=== PATIENT | male | born 2000 | race African-American/Black ===

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

== ENCOUNTER 2019-02-26 09:15 | Emergency (ER) | payer MEDICAID, SELFPAY ==
[2019-02-26 09:16] VITALS: BP 110/63; PULSE 67; RESP 15; TEMP 36.4; O2SAT 100; BMI 24.3
--- NOTE | 2019-02-26 09:24 | ED.VISSUMM ---
- ER Visit Summary Date of Service: 02/26/19 Chief Complaint: Pinkeye History of Present Illness: The patient is a 18 M with pinkeye. Symptoms started this morning. This involves his left eye. Associated with watering and purulence. Denies pain, skin changes, or vision changes. Denies fever. He recently had infectious mononucleosis, but denies any other recent infections. Denies trauma or exposure to anything. He does not wear contact lenses. Physical Examination: Afebrile and vital signs unremarkable. Eye exam shows normal external structures. He does have some matting and watering. Conjunctivae diffusely injected. Pupils round and reactive, symmetric and consensual. Extraocular motions normal. No evidence of foreign bodies. Test Results: None indicated Emergency Department Course and Treatment: Patient has conjunctivitis. Precautions were discussed. He was started on antibiotic ointment. Follow-up with ophthalmology for recheck. Treatment Plan: As above Disposition: Discharge Impression: 1. Left eye conjunctivitis This note was generated with [employer] dictation software. It may contain incorrect words, spelling, and punctuation that were not noted in review of the chart prior to signing ED Disposition - Plan for ED Patient: Referrals: Care Physician,No Primary [Primary Care Provider] -
--- NOTE | 2019-02-26 09:27 | ED.DEP ---
ED Disposition - Plan for ED Patient: Instructions: CONJUNCTIVITIS, Viral Prescriptions: Erythromycin Ophthalmic 1 applic LEFT EYE 4X/DAY 5 Days #1 opth.tube Prescription Printed Referrals: Laurel Burton MD [STAFF PHYSICIAN] -
[2019-02-26] MEDS: Erythromycin Base 1 OPTH.TUBE 1 APPLIC LEFT EYE (10:05)
== END 2019-02-26 10:06 | disposition home or self-care (01) ==
LOC: ED 09:31
PROVIDERS: Emergency Provider Emergency Medicine
DX: H10.9 Unspecified conjunctivitis (principal)
CPT/HCPCS: 99283

== ENCOUNTER 2019-02-27 04:33 | Emergency (ER) | payer MEDICAID, SELFPAY ==
[2019-02-26 09:16] VITALS: BMI 24.3
[2019-02-27 04:34] VITALS: BP 132/73; PULSE 55; RESP 18; TEMP 36.7; O2SAT 100; BMI 24.6
--- NOTE | 2019-02-27 04:38 | ED.VIS.GEN ---
History of Present Illness Chief Complaint: Sore Throat Informant: Patient Narrative: Stated that he was here yesterday and being treated for bilateral conjunctivitis. He has 1 day history of cough runny nose and sore throat. Comes in for further evaluation. He has been using [id number]. Current severity is mild. Positive sick contacts. Negative strep test approximately 2 months ago Past Medical History - Allergies and Home Meds Allergies/Adverse Reactions: Allergies carrot Allergy (Verified 02/27/19 04:34) Itching celery Allergy (Verified 02/27/19 04:34) Itching chaney Allergy (Verified 02/27/19 04:34) Itching Primary Care Physician: NOT,DEFINED [NON-STAFF] - Prior records reviewed: Yes Past Medical History: None Surgical History: no surgical history Lives: With Family Smoking Status: Never smoker Alcohol: None Drugs: None Review of Systems General: Denies: Chills, Fever, Sweats Eyes: Denies: Visual changes - bilaterally, Diplopia ENT: Reports: Rhinorrhea, Sore throat Cardiovascular: Denies: Chest pain, Palpitations Respiratory: Reports: Cough. Denies: Dyspnea, Dyspnea on exertion Gastrointestinal: Denies: Abdominal pain, Nausea, Vomiting, Diarrhea, Melena, Hematochezia Genitourinary: Denies: Dysuria, Hematuria, Frequency Musculoskeletal: Denies: Back pain, Extremity Pain Skin: Denies: Rash, Wounds Neurological: Denies: Headache, Weakness, Numbness Physical Exam Vital Signs/Narrative: Vital Signs Temp Pulse Resp BP Pulse Ox 02/27/19 04:34 98.1 F 55 L 18 132/73 H 100 General: Well nourished, Well developed, No Acute Distress Head: Normocephalic, Atraumatic Eyes: Perrl, EOMI, - - Bilateral conjunctivitis ENT: Moist mucous membranes, No rhinorrhea, - - 2+ mild tonsillitis without exudate Neck: Supple, Nontender Cardiovascular: Regular rate, Regular rhythm, No murmurs Respiratory: No distress, CTA bilaterally, Chest nontender Abdomen: Soft, Nontender, Nondistended, Normal bowel sounds Back: Nontender, Normal Inspection Extremities: Nontender, No edema Skin: Normal color, No rash Neurological: Alert, Oriented x3, Cranial nerves II-XII grossly intact, Normal Strength, Normal Sensation Psychological: Normal affect, Normal Mood Diagnostic/Tx/Re-eval - Medical Decision Making Ibuprofen given. Rapid strep obtained. Rapid strep is negative. At this time I feel the patient's symptoms are consistent with viral upper respiratory infection. He will use symptomatic treatment without antibiotics and follow-up as an outpatient ED Disposition - Plan for ED Patient: Disposition: Home or Assisted Living Diagnosis: Upper respiratory infection Instructions: PHARYNGITIS, Viral Referrals: NOT,DEFINED [NON-STAFF] -
[2019-02-27] MEDS: Ibuprofen 400 MG Tablet 800 MG PO (04:44)
== END 2019-02-27 05:12 | disposition home or self-care (01) ==
PROVIDERS: Emergency Provider Emergency Medicine
DX: J06.9 Acute upper respiratory infection, unspecified (principal)
CPT/HCPCS: 87077; 87880; 99282

== ENCOUNTER 2021-01-30 18:53 | Emergency (ER) | payer OTHER, SELFPAY ==
[2021-01-30 18:54] VITALS: BP 110/70; PULSE 55; RESP 16; TEMP 36.6; O2SAT 98; BMI 25.4
--- NOTE | 2021-01-30 20:58 | RAD_ITS ---
STUDY: X-RAY - MANDIBLE (COMPLETE) REASON FOR EXAM: Male, 20 years old. Jaw pain TECHNIQUE: 6 view(s) of the mandible were obtained. COMPARISON: None. FINDINGS: Normal mandible. Normal visualized right temporomandibular joint. Normal visualized left temporomandibular joint. The remaining visualized osseous structures are normal. The soft tissue structures are unremarkable. RAD/Mandible Min 4 Views IMPRESSION: Normal x-ray examination of the mandible. Electronically Signed: Aki Swift DO at 22:47 EDT Tel [phone], Service support ,
--- NOTE | 2021-01-30 21:53 | EDS_ITS ---
HPI History of Present Illness Chief Complaint: Other, Pain/Inj Narrative Narrative: 20-year-old male presents for evaluation of jaw pain. Patient states that he was playing basketball and was elbowed in the face on the right side of his chin initially. He admits to some lip swelling here. He does not have any tooth loosening. He has no lacerations or abrasions. Patient also states that he was then again struck in the left mandible which actually hurts worse. He is able to open and close his jaw but states it hurts when he tries to close it. He has not had any bleeding from his mouth. No trouble swallowing or breathing. PFSH PFSH Medical History no medical history Home Medications NK 01/30/21 [History Last Taken Unknown] Allergy/AdvReac Type Severity Reaction Status Date / Time carrot Allergy Itching Verified 01/30/21 18:53 celery Allergy Itching Verified 01/30/21 18:53 chaney Allergy Itching Verified 01/30/21 18:53 Surgical History no surgical history Social History Smoking Status: Never smoker ROS ROS ED Constitutional Constitutional ED: Denies chills, fever(s) or sweats Eyes Eyes: Denies blurry vision or change in vision ENT ENT ED: Reports other Details: Jaw pain ; Denies ear pain or sore throat Cardiovascular Cardiovascular: Denies chest pain, palpitations or racing heartbeat Respiratory/Chest Respiratory/Chest: Denies cough, dyspnea or sputum Gastrointestinal Gastrointestinal: Denies abdominal pain, constipation, diarrhea, nausea or vomiting Genitourinary Genitourinary ED: Denies dysuria, hematuria or urinary frequency Musculoskeletal Musculoskeletal: Denies arthralgias, myalgias or neck pain Integumentary Denies abscess, Abrasions or rash Neurologic Neurologic: Denies headache(s), paresthesias or weakness Psychiatric Psychiatric: Denies anxiety, depression, suicidal ideation or suicidal thoughts Endocrine Endocrinology: Denies polydipsia or polyuria EXAM Physical Exam Const Vital Signs: 01/30/21 18:54 01/30/21 21:20 01/30/21 23:07 Temperature 97.8 F Temperature Source Temporal Pulse Rate 55 L 81 Respiratory Rate 16 18 Respiratory Effort Normal Respiratory Pattern Normal Blood Pressure 110/70 121/87 H Blood Pressure Mean 83 98 Pulse Ox 98 99 Oxygen Delivery Method Room Air Positive well nourished General Appearance ED: NAD; Negative for pallor HEENT Reports normocephalic, head/scalp atraumatic and moist mucous membranes HEENT Narrative: There is right lower lip swelling without laceration. There is no bruising. The dentition are intact throughout. There is pain to palpation over the left angle of the mandible and no obvious deformity. Patient able to open and close his jaw. He has no trouble swallowing or breathing. There is no swelling to the left side of the mandible. Eyes PERRL and EOMs intact bilaterally Neck no lymphadenopathy and supple Resp normal respiratory effort and clear to auscultation bilaterally Auscultation: Negative for rales, rhonchi or wheezes Cardio regular rate and regular rhythm Narrative: Deferred Back/Spine no CVA tenderness Cervical Spine: Negative for cervical spine tenderness Neuro oriented x3, CN's II-XII intact bilaterally and no sensory deficits noted Sensorium / Orientation: alert Motor Exam: strength 5/5 throughout Psych mental status grossly normal Attitude: No agitated Skin Skin Narrative: As described above General Skin Exam: Negative for jaundice or pallor MDM MDM MDM Narrative Medical decision making narrative: Patient presenting with jaw pain after being struck in the face with playing basketball. He denies LOC. He is not dizzy or lightheaded. He declines analgesia. I will obtain imaging of the left jaw. I think this will likely be negative given the patient's examination. Patient x- ray of the jaw is negative on my interpretation for acute fracture or subluxation. Again patient declined analgesia. At this point I will discharge him home. He is counseled he is alternating dose of Tylenol and ibuprofen. He can also use ice as needed. Impression: 1. Jaw contusion Radiography Diagnostic Testing: Clinical Impression(s) from Imaging Studies Mandible X-Ray 01/30/21 20:58 IMPRESSION: Normal x-ray examination of the mandible. Electronically Signed: Aki Swift DO at 22:47 EDT Tel [phone], Service support , Discharge Plan Triage Chief Complaint: Other, Pain/Inj ED Provider: Juan Hanson Dx/Rx/DC Orders Instructions: ED Facial Contusion Prescriptions: No Action NK RF: 0 Primary Care Provider: Care Physician,No Primary Referrals: Care Physician,No Primary [Primary Care Provider] - Disposition Disposition: Home, Self Care
[2021-01-30 23:07] VITALS: BP 121/87; PULSE 81; RESP 18; O2SAT 99
== END 2021-01-30 23:36 | disposition home or self-care (01) ==
PROVIDERS: Emergency Provider Student in an Organized Health Care Education/Training Program
DX: S00.83XA Contusion of other part of head, initial encounter (principal); W50.0XXA Accidental hit or strike by another person, initial encounter; Y93.67 Activity, basketball; Y92.9 Unspecified place or not applicable; Y99.8 Other external cause status
CPT/HCPCS: 70110; 99282